=== PATIENT | female | born 1985 | race Caucasian/White ===

== ENCOUNTER 2018-02-12 04:06 | Inpatient (IN) | payer OTHER ==
[2018-02-12] MEDS ORDERED: CYTOTEC ONE (04:15)
[2018-02-12] MEDS ORDERED: MINERAL OIL PO PRN (05:25)
[2018-02-12] MEDS ORDERED: MILK OF MAGNESIA PO PRN (05:39)
[2018-02-12] MEDS ORDERED: PHENERGAN PR PRN (05:39)
[2018-02-12] MEDS ORDERED: BENADRYL PO PRN (05:39)
[2018-02-12] MEDS ORDERED: ZOFRAN IV PRN (05:39)
[2018-02-12] MEDS ORDERED: TUCKS PAD TP PRN (05:39)
[2018-02-12] MEDS ORDERED: LANSINOH TP PRN (05:39)
[2018-02-12] MEDS ORDERED: PHENERGAN PO PRN (05:39)
[2018-02-12] MEDS ORDERED: DULCOLAX PR PRN (05:39)
[2018-02-12] MEDS ORDERED: TYLENOL PO PRN (05:39)
[2018-02-12] MEDS ORDERED: CYTOTEC PR ONE (05:41)
--- NOTE | 2018-02-12 05:56 | History and Physical Report ---
History of Present Illness Date of examination: 02/12/18 Date of admission: 02/12/18 04:16 Chief complaint: Labor History of present illness: 32 year old presents to L&D in advanced labor, completely dilated with urge to push. Patient states her water broke at home. Patient brings records in with her. She has been receiving care at [facility]. labs are as follows: O+, Antibody screen negative, Rubella immune, Hepatitis B surface antigen negative, RPR nonreactive, HIV negative, GC negative , CT negative, GBS positive, sugar test result 110, pap negative. LMP 05/20/17. EDC 02/23/2018. Past History Past Medical History: no pertinent history Past Surgical History: no surgical history [employer] History: denies: chlamydia, gonorrhea, hepatitis B, hepatitis C, herpes, HIV , syphilis Family/Genetic History: diabetes, hypertension Social history: , lives with family, full code. denies: smoking, alcohol abuse, IV drug use - Obstetrical History Expected Date of Delivery: 02/23/18 Actual Gestation: 38 Week(s) 3 Day(s) : 5 Para: 4 Hx # Term Pregnancies: 5 Number of Pregnancies: 0 Spontaneous Abortions: 0 Induced : 0 Medications and Allergies Allergies Allergy/AdvReac Type Severity Reaction Status Date / Time No Known Allergies Allergy Verified 04/25/13 06:24 Home Medications Medication Instructions Recorded Confirmed Last Taken Type HYDROcodone/APAP 5-325 [Virgil 2 each PO Q6H PRN #30 tablet 04/18/15 Unknown Rx 5-325 mg TAB] Ibuprofen [Motrin 600 MG tab] 600 mg PO Q6HR #30 tablet 04/18/15 Unknown Rx Active Meds: Active Medications Acetaminophen (Tylenol) 650 mg PO Q4H PRN PRN Reason: Pain MILD(1-3)/Fever >100.5/MCDERMOTT Bisacodyl (Dulcolax) 10 mg IN BID PRN PRN Reason: Constipation Diphenhydramine HCl (Benadryl) 25 mg PO Q6H PRN PRN Reason: Itching Lactated Ringer's (Lactated Ringers) 1,000 mls @ 125 mls/hr IV DIRECT KEATON Oxytocin/Sodium Chloride (Pitocin/Ns 20 Unit/1000ml Drip) 20 units in 1,000 mls @ 125 mls/hr IV DIRECT KEATON Ibuprofen (Motrin) 600 mg PO Q6H KEATON Magnesium Hydroxide (Milk Of Magnesia) 30 ml PO HS PRN PRN Reason: Constipation Mineral Oil (Mineral Oil) 30 ml PO QHS PRN PRN Reason: Constipation Multi-Ingredient Ointment (Lansinoh) 1 applic TP PRN PRN PRN Reason: Sore Nipples Ondansetron HCl (Zofran) 4 mg IV Q8H PRN PRN Reason: Nausea And Vomiting Promethazine HCl (Phenergan) 25 mg IN Q6H PRN PRN Reason: Nausea And Vomiting Promethazine HCl (Phenergan) 25 mg PO Q6H PRN PRN Reason: Nausea And Vomiting Sodium Chloride (Sodium Chloride Flush Syringe 10 Ml) 10 ml IV PRN PRN PRN Reason: LINE FLUSH Witch Sun[place]/Glycerin (Tucks Pad) 1 each TP PRN PRN PRN Reason: Hemorrhoid/cleansing/soothing Review of Systems All systems: negative (labor) - Vital Signs Vital signs: Vital Signs Pulse BP 75 100/53 02/12/18 04:24 02/12/18 04:24 Temp Pulse Resp BP Pulse Ox 61 114/69 02/12/18 05:39 02/12/18 05:39 - Physical Exam Breasts: Positive: deferred Cardiovascular: Regular rate, Normal S1, Normal S2, No murmurs Lungs: Positive: Clear to auscultation Abdomen: Positive: normal appearance, soft. Negative: distention, tenderness, guarding, rigidity Vagina: Positive: normal moisture Uterus: Positive: enlarged Anus/Rectum: Positive: normal perianal skin Extremities: Positive: normal - Obstetrical FHR: auscultation normal Uterine Contraction Monitor Mode: External Cervical Dilatation: 10 Cervical Effacement Percentage: 100 station: +2 Uterine Contraction Pattern: Regular Uterine Contraction Intensity: Moderate Results Result Diagrams: 02/12/18 04:19 All other labs normal. Assessment and Plan A: at 38 weeks, 2 days gestation. GBS positive. Paient arived in L&D completely dilated and pushed once. P: Anticipate .
[2018-02-12] MEDS ORDERED: PITOCin/NS 20 UNIT/1000ML DRIP 20 UNITS/1,000 ML BAG IV SCH ×2 (06:00)
[2018-02-12] MEDS ORDERED: SODIUM CHLORIDE FLUSH SYRINGE 10 ML IV PRN (06:00)
[2018-02-12] MEDS ORDERED: LACTATED RINGERS 1,000 ML IV SCH (06:00)
[2018-02-12 06:04] LABS: Hematocrit 36.3 % (30.3-42.9); Hemoglobin 12.3 gm/dl (10.1-14.3); Mean Corpuscular HGB Conc 34 % (30-34); Mean Corpuscular Hemoglobin 32 pg (28-32); Mean Corpuscular Volume 94 fl (79-97); Platelet Count 159 K/mm3 (140-440); Red Blood Count 3.88 M/mm3 (3.65-5.03); Red Cell Distribution Width 14.9 % (13.2-15.2)
--- NOTE | 2018-02-12 06:22 | Procedure Note ---
OB Delivery Note - Delivery Date of Delivery: 02/12/18 Surgeon: VANDA NORTH Estimated blood loss: other (350) - Vaginal Delivery presentation: vertex Delivery position: OA Intrapartum events: none Delivery induction: none Delivery monitor: none, external FHT Route of delivery: Delivery placenta: spontaneous Delivery cord: 3 umbilical vessels Episiotomy: none Delivery laceration: none Anesthesia: none Delivery comments: Spontaneous vaginal delivery of liveborn male infant over intact perineum weighing 8 lb. 4 oz. with apgars of 8/9. Baby placed immediately skin to skin on maternal chest.
[2018-02-12] MEDS ORDERED: XYLOCAINE 2% INFILTRATI ONE ×2 (08:07→08:13)
[2018-02-12] MEDS: MOTRIN PO SCH ×2 (14:05→14:15)
[2018-02-12 17:02] LABS: Hematocrit 36.7 % (30.3-42.9); Hemoglobin 12.4 gm/dl (10.1-14.3)
[2018-02-13] MEDS: MOTRIN PO SCH ×5 (00:02→23:43)
[2018-02-13] MEDS ORDERED: BOOSTRIX IM ONE (06:00)
--- NOTE | 2018-02-13 09:47 | Progress Note ---
Assessment and Plan A: PPD # 1 - stable GBS + P: Plan discharge home in am Subjective - Subjective Date of service: 02/13/18 Principal diagnosis: GBS + Patient reports: appetite normal [place]: doing well Objective - Vital Signs Latest vital signs: Vital Signs Temp Pulse Resp BP Pulse Ox 02/13/18 02:27 98.3 F 87 20 122/64 98 02/12/18 16:59 97.8 F 62 20 102/48 99 02/12/18 11:40 98.3 F 56 L 18 116/68 98 Intake and Output 02/12/18 02/13/18 02/13/18 22:59 06:59 14:59 Intake Total 1200 240 Output Total 700 Balance 500 240 Intake: Oral 480 240 Intake, Free Water 720 Output: Urine 700 Void 700 Other: Total, Intake Amount 240 240 Total, Output Amount 700 # Voids Void 1 1 - Exam Breasts: Present: deferred Cardiovascular: Present: Regular rate Lungs: Present: Clear to auscultation Abdomen: Present: soft Vulva: both: normal Uterus: Present: fundal height below umbilicus Extremities: Present: normal Deep Tendon Reflex Grade: Normal +2
--- NOTE | 2018-02-13 09:49 | Discharge Summary ---
Providers - Providers Date of Admission: 02/12/18 04:16 Date of discharge: 02/14/18 Attending physician: MELVA RAVI MD Primary care physician: MELVA RAVI MD Hospitalization Reason for admission: active labor Delivery: Episiotomy: none Laceration: none complications: none Discharge diagnosis: IUP at term delivered [place] baby: male Condition at discharge: Good Disposition: DC-01 TO HOME OR SELFCARE Plan - Provider Discharge Summary Activity: routine, no sex for 6 weeks, no strenuous exercise Diet: routine Instructions: routine Additional instructions: [] Smoking cessation referral if applicable(refer to patient education folder for contact #) [] Refer to [facility] Booklet Call your doctor immediately for: * Fever > 100.5 * Heavy vaginal bleeding ( >1 pad per hour) * Severe persistent headache * Shortness of breath * Reddened, hot, painful area to leg or breast * Drainage or odor from incision. * Keep incision clean and dry at all times and follow doctor's instructions regarding bathing/showering - Follow up plan Follow up: MELVA RAVI MD [Primary Care Provider] - 6 Weeks
[2018-02-14] MEDS: MOTRIN PO SCH ×2 (06:07→12:21)
[2018-02-14 19:37] VITALS: BP 102/43
== END 2018-02-14 15:45 | disposition home or self-care (01) | DRG 775 ==
LOC: TRG 04:06 → LD 04:16 → OB 08:37
PROVIDERS: ADMIT Obstetrics & Gynecology; ATTEND Obstetrics & Gynecology
PROC: 10E0XZZ Delivery of Products of Conception, External Approach (ICD-10-PCS; principal; 2018-02-12)
DX: O99.824 Streptococcus B carrier state complicating childbirth (principal); Z3A.38 38 weeks gestation of pregnancy; Z37.0 Single live birth; Z82.49 Family history of ischemic heart disease and other diseases of the circulatory system; Z83.3 Family history of diabetes mellitus; Z79.899 Other long term (current) drug therapy
CPT/HCPCS: 36415; 85014; 85018; 85027; 86592; 86850; 86900; 86901; 90471; 90715; A6250; J2590